=== PATIENT | male | born 1985 | race American Indian/Alaskan Native ===

== ENCOUNTER 2016-10-31 11:43 | Observation (INO) | payer MEDICAID, OTHER ==
[2016-10-31 12:58] VITALS: TEMP 98.4; BMI 43.9
[2016-10-31] MEDS ORDERED: Sodium Chloride 0.9% 1,000 ML IV STA (13:07)
--- NOTE | 2016-10-31 13:16 | ED PDOC ---
Arrival/HPI - General Chief Complaint: Abdominal Pain Time Seen by Provider: 10/31/16 12:13 Historian: Patient, Family - History of Present Illness Narrative History of Present Illness (Text): 10/31/16 12:56 Ashwini Sutton is a 31 year old male, whose past medical history includes diverticulitis and surgery on his left shoulder, who presents to the Emergency department complaining of upper abdominal pain. Patient states the pain began yesterday in the evening and reports vomiting, feeling dizziness, and nausea. Patient denies chest pain, shortness of breath, headache, fever, chills, cough, diarrhea, changes in bowel habits, dysuria, hematuria, frequency, flank pain, or other complaints. PMD: Dr. Walker Time/Duration: 24 hours Symptom Onset: Sudden Symptom Course: Unchanged Modifying Factors (Text): None Context: Home Associated Symptoms (Text): Vomiting, nausea, and dizziness Past Medical History - Provider Review Nursing Documentation Reviewed: Yes - Infectious Disease Hx of Infectious Diseases: None - Cardiac Hx Cardiac Disorders: No - Pulmonary Hx Respiratory Disorders: No - Neurological Hx Migraine: Yes - HEENT Hx HEENT Disorder: No - Renal Hx Renal Disorder: No - Endocrine/Metabolic Hx Endocrine Disorders: No - Hematological/Oncological Hx Blood Disorders: No - Integumentary Hx Dermatological Disorder: No - Musculoskeletal/Rheumatological Hx Musculoskeletal Disorders: Yes Hx Back Pain: Yes Hx Herniated Disk: Yes (LUMBAR L5 S1) Other/Comment: Chronic Left shoulder dislocation. Numerous visits in the ER. - Gastrointestinal Hx Diverticulitis: Yes - Genitourinary/Gynecological Hx Genitourinary Disorders: No - Psychiatric Hx Psychophysiologic Disorder: No Hx Substance Use: No - Surgical History Hx Orthopedic Surgery: Yes (left shoulder) - Anesthesia Hx Anesthesia: Yes - Suicidal Assessment Feels Threatened In Home Enviroment: No Family/Social History - Physician Review Nursing Documentation Reviewed: Yes Family/Social History: Unknown Family HX Smoking Status: Never Smoked Hx Alcohol Use: No Hx Substance Use: No Allergies/Home Meds Allergies/Adverse Reactions: Allergies shrimp Allergy (Intermediate, Verified 10/31/16 12:13) SHORTNESS OF BREATH hydromorphone Adverse Reaction (Intermediate, Verified 10/31/16 12:13) SHORTNESS OF BREATH seafood Adverse Reaction (Intermediate, Uncoded 10/31/16 12:13) SHORTNESS OF BREATH Review of Systems - Physician Review All systems were reviewed & negative as marked: Yes - Review of Systems Constitutional: Normal. absent: Fevers Eyes: Normal ENT: Normal Respiratory: Normal. absent: SOB Cardiovascular: Normal. absent: Chest Pain Gastrointestinal: Abdominal Pain, Nausea, Vomiting. absent: Diarrhea Genitourinary Male: absent: Dysuria Musculoskeletal: Normal Skin: Normal Neurological: Dizziness. absent: Headache Endocrine: Normal Hemo/Lymphatic: Normal Psychiatric: Normal Physical Exam Vital Signs Reviewed: Yes Vital Signs Temp Pulse Resp BP Pulse Ox 10/31/16 18:12 81 16 122/84 100 10/31/16 15:56 72 16 118/80 99 10/31/16 14:16 71 16 120/82 98 10/31/16 12:17 98.4 F 77 18 122/83 100 Temperature: Afebrile Blood Pressure: Normal Pulse: Regular Respiratory Rate: Normal Appearance: Positive for: Well-Appearing, Non-Toxic, Comfortable Pain Distress: None Mental Status: Positive for: Alert and Oriented X 3 - Systems Exam Head: Present: Atraumatic, Normocephalic Pupils: Present: PERRL Conjunctiva: Present: Normal Mouth: Present: Moist Mucous Membranes Pharnyx: Present: Normal. No: ERYTHEMA, EXUDATE Neck: Present: Normal Range of Motion Respiratory/Chest: Present: Clear to Auscultation, Good Air Exchange. No: Respiratory Distress, Accessory Muscle Use Abdomen: Present: Tenderness (tender in palpation of epigastric region), Normal Bowel Sounds. No: Distention, Peritoneal Signs Upper Extremity: Present: Normal Inspection. No: Cyanosis, Edema Lower Extremity: Present: Normal Inspection. No: Edema Neurological: Present: GCS=15, CN II-XII Intact, Speech Normal Skin: Present: Warm, Dry, Normal Color. No: Rashes Psychiatric: Present: Alert, Oriented x 3, Normal Insight, Normal Concentration Medical Decision Making ED Course and Treatment: 10/31/16 12:56 Impression: 31 year old male with abdominal pain. Differential Diagnosis included but are not limited to: gastritis vs. pancreatitis vs. colecistits vs. diverticulitis Plan: -- EKG -- Urinalysis -- Labs -- Pepcid, Sodium Chloride, and Zofran -- Reassess and disposition 10/31/16 16:32 Abdomen Ultrasound: Creator : Syd Bruno MD FINDINGS: LIVER: Measures approximately 14.6 cm cm. Demonstrates smooth contour however increased echogenicity suggesting fatty infiltration. Other infiltrative hepatocellular disease process not excluded. . No mass. No intrahepatic bile duct dilatation. GALLBLADDER: There appears to be intraluminal shadowing gallbladder calculus near the gallbladder neck region. No evidence of pericholecystic fluid collections or sonographic Love sign. COMMON BILE DUCT: Measures 4.4 --4.7 mm. No stones. No dilatation. PANCREAS: Pancreas is not visualized due to body habitus and bowel gas. RIGHT KIDNEY: Measures approximately 11.9 x 6.0 x 6.9 cmcm. Normal echogenicity. No calculus, mass, or hydronephrosis. LEFT KIDNEY: Measures 11.8 x 5.2 x 6.7cm. Normal echogenicity. No calculus, mass , or hydronephrosis. SPLEEN: Normal in size measuring approximately 11.3 cm. No splenic mass collection or calcification. AORTA: No aneurysmal dilatation. IVC: Unremarkable. OTHER FINDINGS: None. IMPRESSION: Cholelithiasis. No sonographic Love sign. Findings suggest mild fatty hepatic infiltration however other infiltrative hepatocellular disease process not excluded. Note that the pancreas is not visualized on this exam. Pancreas not visualized on this study due to body habitus and bowel gas. 10/31/16 17:[address]: Creator : Syd Bruno MD FINDINGS: LOWER THORAX: Mild bibasilar atelectasis. No evidence of basilar effusion or pneumothorax. Tiny hiatal hernia. Heart size within range of normal. No significant pericardial effusion. LIVER: Liver exhibits normal size and attenuation pattern without mass collection dictation. GALLBLADDER AND BILE DUCTS: Unremarkable. No evidence of intraluminal gallbladder calculi are pericholecystic fluid collections. PANCREAS: Pancreas appears grossly unremarkable without mass collection or calcification. SPLEEN: Spleen exhibits normal size and attenuation pattern without mass collection or calcification. ADRENALS: There are no adrenal lesions. KIDNEYS AND URETERS: Kidneys demonstrate relatively symmetric size. No evidence of nephrolithiasis or hydronephrosis. Small elliptical shaped cyst lateral posterolateral aspect upper/ midpole right kidney. BLADDER: Urinary bladder is incompletely distended which in part accounts for thick-walled appearance the possibility of cystitis not excluded. REPRODUCTIVE: Prostate gland and seminal vesicles unremarkable. APPENDIX: What is felt to represent on normal-appearing appendix best seen on axial image number [id number]. No periappendiceal inflammatory changes. BOWEL: Evaluation of the bowel is limited due to the lack of oral contrast material. Stomach is incompletely distended which may account for slight thick- walled appearance. Possibility of a gastritis not excluded. Visualized loops of small bowel exhibit normal contour and caliber. No evidence of acute mechanical small bowel obstruction. Stool and air seen throughout the colon. No evidence of definitive abnormal mural wall thickening. Few scattered colonic diverticula seen along the distal descending/ sigmoid colon. No radiographic evidence of acute diverticulitis. PERITONEUM: Unremarkable. No fluid collection. No free air. Small fat containing umbilical hernia. LYMPH NODES: Unremarkable. No enlarged lymph nodes. VASCULATURE: Unremarkable. No aortic aneurysm. BONES: Degenerative spondylosis L5-S1 level. No acute compression fractures. Vertebral bodies exhibit normal stature. OTHER FINDINGS: None. IMPRESSION: Few scattered colonic diverticula with no radiographic evidence of acute diverticulitis. No evidence of acute appendicitis. Tiny hiatal hernia. Small on cyst posterolateral upper/midpole right kidney. Urinary bladder is incompletely distended which may account for thick-walled appearance. Possibility of a cystitis not excluded. - Lab Interpretations I have reviewed the lab results: Yes - Medication Orders Current Medication Orders: Discontinued Medications Famotidine (Pepcid) 20 mg IVP STAT STA Stop: 10/31/16 13:07 Last Admin: 10/31/16 13:34 Dose: 20 mg Sodium Chloride (Sodium Chloride 0.9%) 1,000 mls @ 999 mls/hr IV .Q1H1M STA Stop: 10/31/16 14:07 Last Admin: 10/31/16 13:34 Dose: 999 mls/hr Ondansetron HCl (Zofran Inj) 4 mg IVP STAT STA Stop: 10/31/16 13:08 Last Admin: 10/31/16 13:34 Dose: 4 mg ED OBSERVATION Discharge: Yes Date of observation admission: 10/31/16 Time of observation admission: 12:56 - Observation admission statement Patient is being placed in observation because:: Abdominal pain - Goals of Observation Goals of observation are:: Purpose is to improve the symptoms and discharge. - Progress Note Progress Note: 10/31/16 12:56 Abdominal pain in the epigastric region. Patient will be observed for improvement and discharge. 10/31/16 14:56 Patient reports resolution of nausea after medication of Pepcid was administered for his stomach pain. The pain is significantly better, but notes mild pain is still present, yet manageable. Patient refuses any more pain medication. 10/31/16 16:55 Patient is currently at CAT scan. 10/31/16 18:00 Patient says pain is much better; sono showing gallstones but no signs of cholecystitis. CT with no acute findings. Patient feeling much better. OK for d/c. - Scribe Statement The provider has reviewed the documentation as recorded by the Scribe 10/31/2016 Marlee Coles All medical record entries made by the Scribe were at my direction and personally dictated by me. I have reviewed the chart and agree that the record accurately reflects my personal performance of the history, physical exam, medical decision making, and the department course for this patient. I have also personally directed, reviewed, and agree with the discharge instructions and disposition. Disposition/Present on Arrival - Present on Arrival Any Indicators Present on Arrival: No History of DVT/PE: No History of Uncontrolled Diabetes: No Urinary Catheter: No History of Decub. Ulcer: No History Surgical Site Infection Following: None - Disposition Have Diagnosis and Disposition been Completed?: Yes Diagnosis: Abdominal pain Disposition: HOME/ ROUTINE Disposition Time: 17:50 Patient Plan: Discharge Patient Problems: Current Active Problems Problem Status Onset Abdominal pain Acute Condition: GOOD
[2016-10-31 13:54] LABS: URINE BILIRUBIN NEGATIVE (NEGATIVE); URINE BLOOD NEGATIVE (NEGATIVE); URINE GLUCOSE (UA) NEGATIVE (NEGATIVE); URINE LEUKOCYTE ESTERASE NEGATIVE Leu/uL (NEGATIVE); URINE NITRATE NEGATIVE (NEGATIVE); URINE PROTEIN TRACE mg/dL (<30 mg/dL)
[2016-10-31 13:55] LABS: BASO # 0.02 K/mm3 (0.0-2.0); BASO % 0.1 % (0.0-3.0); EOS % 0.1 % (1.5-5.0); GRAN # 12.53 (1.4-6.5); GRAN % 86.5 % (50.0-68.0); HEMOGLOBIN 15.3 gm/dL (14.0-18.0); LYMPH # 1.2 (1.2-3.4); LYMPH % 8.4 % (22.0-35.0); MEAN CELL VOLUME 83.8 fL (80.0-105.0); MEAN CORPUSCULAR HEMOGLOBIN 28.1 pg (25.0-35.0); MEAN CORPUSCULAR HGB CONC 33.6 g/dl (31.0-37.0); MEAN PLATELET VOLUME 11.3 fl (7.0-11.0); MONO # 0.7 (0.1-0.6); MONO % 4.9 % (1.0-6.0); PLATELET COUNT 321 10^3/uL (120.0-450.0); RBC 5.44 10^6/uL (3.5-6.1); RED CELL DISTRIBUTION WIDTH 14.2 % (11.5-14.5); WHITE BLOOD COUNT 14.5 10^3/ul (4.5-11.0)
[2016-10-31 13:56] LABS: URINE APPEARANCE CLEAR (CLEAR); URINE COLOR YELLOW (YELLOW)
[2016-10-31 13:58] LABS: ALB/GLOB RATIO 1.1 (1.1-1.8); ALBUMIN 4.8 g/dL (3.0-4.8); ALT/SGPT 58 U/L (7-56); AMYLASE 77 U/L (35-125); AST/SGOT 32 U/L (15-59); BLOOD UREA NITROGEN 10 mg/dL (7-21); CALCIUM 9.5 mg/dL (8.4-10.5); GFR AFRICAN-AMERICAN > 60; GFR NON-AFRICAN AMERICAN > 60; LIPASE 34 U/L (23-300)
[2016-10-31 13:59] LABS: INR 0.98 (0.93-1.08); PARTIAL THROMBOPLASTIN TIME 29.6 Seconds (23.7-30.8); PROTHROMBIN TIME 10.6 Seconds (9.9-11.8)
[2016-10-31 14:08] LABS: URINE EPITHELIAL CELLS 0 - 2 /hpf (0-5); URINE RBC 0 - 2 /hpf (0-2); URINE WBC 0 - 2 /hpf (0-6)
[2016-10-31 14:18] LABS: TROPONIN I < 0.01 ng/mL
[2016-10-31 15:56] VITALS: RESP 16
--- NOTE | 2016-10-31 16:30 | US ---
HISTORY: upper abd pain COMPARISON: None. TECHNIQUE: Sonographic evaluation of the abdomen. FINDINGS: LIVER: Measures approximately 14.6 cm cm. Demonstrates smooth contour however increased echogenicity suggesting fatty infiltration. Other infiltrative hepatocellular disease process not excluded. . No mass. No intrahepatic bile duct dilatation. GALLBLADDER: There appears to be intraluminal shadowing gallbladder calculus near the gallbladder neck region. No evidence of pericholecystic fluid collections or sonographic Love sign. COMMON BILE DUCT: Measures 4.4 --4.7 mm. No stones. No dilatation. PANCREAS: Pancreas is not visualized due to body habitus and bowel gas. RIGHT KIDNEY: Measures approximately 11.9 x 6.0 x 6.9 cmcm. Normal echogenicity. No calculus, mass, or hydronephrosis. LEFT KIDNEY: Measures 11.8 x 5.2 x 6.7cm. Normal echogenicity. No calculus, mass, or hydronephrosis. SPLEEN: Normal in size measuring approximately 11.3 cm. No splenic mass collection or calcification. AORTA: No aneurysmal dilatation. IVC: Unremarkable. OTHER FINDINGS: None. IMPRESSION: Cholelithiasis. . No sonographic Love sign. Findings suggest mild fatty hepatic infiltration however other infiltrative hepatocellular disease process not excluded. Note that the pancreas is not visualized on this exam Pancreas not visualized on this study due to body habitus and bowel gas.
--- NOTE | 2016-10-31 17:20 | CT ---
PROCEDURE: CT abdomen and pelvis dated 10/31/2016 HISTORY: Abdominal pain and vomiting. COMPARISON: None. TECHNIQUE: Contiguous axial images of the abdomen and pelvis performed without oral or intravenous contrast material. Additional 2 dimensional sagittal and coronal reformats provided. . Radiation dose: Total exam DLP = 1319.91 mGy-cm. This CT exam was performed using one or more of the following dose reduction techniques: Automated exposure control, adjustment of the mA and/or kV according to patient size, and/or use of iterative reconstruction technique. FINDINGS: LOWER THORAX: Mild bibasilar atelectasis. No evidence of basilar effusion or pneumothorax. Tiny hiatal hernia. Heart size within range of normal. No significant pericardial effusion. LIVER: Liver exhibits normal size and attenuation pattern without mass collection dictation. GALLBLADDER AND BILE DUCTS: Unremarkable. No evidence of intraluminal gallbladder calculi are pericholecystic fluid collections. PANCREAS: Pancreas appears grossly unremarkable without mass collection or calcification. SPLEEN: Spleen exhibits normal size and attenuation pattern without mass collection or calcification. ADRENALS: There are no adrenal lesions. KIDNEYS AND URETERS: Kidneys demonstrate relatively symmetric size. No evidence of nephrolithiasis or hydronephrosis. Small elliptical shaped cyst lateral posterolateral aspect upper/ midpole right kidney. BLADDER: Urinary bladder is incompletely distended which in part accounts for thick-walled appearance the possibility of cystitis not excluded. REPRODUCTIVE: Prostate gland and seminal vesicles unremarkable. APPENDIX: What is felt to represent on normal-appearing appendix best seen on axial image number [id number]. No periappendiceal inflammatory changes. BOWEL: Evaluation of the bowel is limited due to the lack of oral contrast material. Stomach is incompletely distended which may account for slight thick-walled appearance. Possibility of a gastritis not excluded. Visualized loops of small bowel exhibit normal contour and caliber. No evidence of acute mechanical small bowel obstruction. Stool and air seen throughout the colon. No evidence of definitive abnormal mural wall thickening. Few scattered colonic diverticula seen along the distal descending/ sigmoid colon. No radiographic evidence of acute diverticulitis. PERITONEUM: Unremarkable. No fluid collection. No free air. Small fat containing umbilical hernia. LYMPH NODES: Unremarkable. No enlarged lymph nodes. VASCULATURE: Unremarkable. No aortic aneurysm. BONES: Degenerative spondylosis L5-S1 level. No acute compression fractures. Vertebral bodies exhibit normal stature. OTHER FINDINGS: None. IMPRESSION: Few scattered colonic diverticula with no radiographic evidence of acute diverticulitis. No evidence of acute appendicitis. Tiny hiatal hernia. Small on cyst posterolateral upper/midpole right kidney. Urinary bladder is incompletely distended which may account for thick-walled appearance. Possibility of a cystitis not excluded.
[2016-10-31 18:12] VITALS: BP 122/84; PULSE 81; O2SAT 100
--- NOTE | 2016-10-31 19:06 | CARD ---
APPROVED REPORT EKG Measurement Heart [id number] <Conclusion> Normal sinus rhythm Voltage criteria for left ventricular hypertrophy Nonspecific ST abnormality Abnormal ECG
== END 2016-10-31 18:45 | disposition home or self-care (01) ==
LOC: ED 11:43 → EROBSV 12:56
PROVIDERS: ADMIT Emergency Medicine; ATTEND Emergency Medicine
DX: R10.9 Unspecified abdominal pain (principal)
CPT/HCPCS: 36415; 74176; 76700; 80053; 81001; 82150; 82550; 83615; 83690; 84484; 85025; 85610; 85730; 93005; 96361; 96374; 96375; 99284; G0378; J2405; J7040

== ENCOUNTER 2018-06-17 06:57 | Emergency (ER) | payer MEDICAID ==
[2018-06-17 06:57] VITALS: BMI 34.7
[2018-06-17] MEDS ORDERED: Sodium Chloride 0.9% 1,000 ML IV STA (07:22)
--- NOTE | 2018-06-17 07:39 | ED PDOC ---
Arrival/HPI - General Chief Complaint: Abdominal Pain Time Seen by Provider: 06/17/18 07:06 Historian: Patient - History of Present Illness Narrative History of Present Illness (Text): 06/17/18 07:36 A 32 year old male, whose past medical history includes chronic neck and back pain and diverticulitis, presents to the emergency department with a complaint of upper abdominal pain. Patient reports that the pain began about 1.5 hours ago and he describes it as an "achy" sensation. He reports mild nausea. The patient denies fevers, chills, headache, dizziness, chest pain, shortness of breath, dyspnea on exertion, cough, vomiting, diarrhea, urinary/bowel changes, or any other complaint. PMD/ GI: Dr. Srivastava Time/Duration: 1-3 hours Symptom Onset: Sudden Symptom Course: Unchanged Activities at Onset: Rest, Light Context: Home Past Medical History - Provider Review Nursing Documentation Reviewed: Yes - Infectious Disease Hx of Infectious Diseases: None - Cardiac Hx Cardiac Disorders: No - Pulmonary Hx Respiratory Disorders: No - Neurological Hx Migraine: Yes - HEENT Hx HEENT Disorder: No - Renal Hx Renal Disorder: No - Endocrine/Metabolic Hx Endocrine Disorders: No - Hematological/Oncological Hx Blood Disorders: No - Integumentary Hx Dermatological Disorder: No - Musculoskeletal/Rheumatological Hx Musculoskeletal Disorders: Yes Hx Back Pain: Yes Hx Herniated Disk: Yes (LUMBAR L5 S1) Other/Comment: Chronic Left shoulder dislocation. Numerous visits in the ER. - Gastrointestinal Hx Diverticulitis: Yes - Genitourinary/Gynecological Hx Genitourinary Disorders: No - Psychiatric Hx Psychophysiologic Disorder: No Hx Substance Use: No - Surgical History Hx Orthopedic Surgery: Yes (left shoulder) - Anesthesia Hx Anesthesia: Yes - Suicidal Assessment Feels Threatened In Home Enviroment: No Family/Social History - Physician Review Nursing Documentation Reviewed: Yes Family/Social History: No Known Family HX Smoking Status: Never Smoked Hx Alcohol Use: No Hx Substance Use: No Allergies/Home Meds Allergies/Adverse Reactions: Allergies shrimp Allergy (Intermediate, Verified 06/17/18 07:04) SHORTNESS OF BREATH hydromorphone Adverse Reaction (Intermediate, Verified 06/17/18 07:04) SHORTNESS OF BREATH seafood Adverse Reaction (Intermediate, Uncoded 06/17/18 07:04) SHORTNESS OF BREATH Review of Systems - Physician Review All systems were reviewed & negative as marked: Yes - Review of Systems Constitutional: absent: Fevers Respiratory: absent: SOB, Cough Cardiovascular: absent: Chest Pain, FORTE Gastrointestinal: Abdominal Pain (Upper abdominal pain), Nausea. absent: Stool Changes, Diarrhea, Vomiting Genitourinary Male: absent: Urinary Output Changes Neurological: absent: Headache, Dizziness Physical Exam Vital Signs Reviewed: Yes Temperature: Afebrile Blood Pressure: Normal Pulse: Regular Respiratory Rate: Normal Appearance: Positive for: Non-Toxic Mental Status: Positive for: Alert and Oriented X 3 - Systems Exam Head: Present: Atraumatic, Normocephalic Pupils: Present: PERRL Extroacular Muscles: Present: EOMI Conjunctiva: Present: Normal Mouth: Present: Moist Mucous Membranes Neck: Present: Normal Range of Motion Respiratory/Chest: Present: Clear to Auscultation, Good Air Exchange. No: Respiratory Distress, Accessory Muscle Use Cardiovascular: Present: Regular Rate and Rhythm, Normal S1, S2. No: Murmurs Abdomen: Present: Tenderness (Tenderness to upper abdomen. Greater on right and epigastric area. ), Guarding. No: Distention, Peritoneal Signs, Rebound Back: Present: Normal Inspection Upper Extremity: Present: Normal Inspection. No: Cyanosis, Edema Lower Extremity: Present: Normal Inspection. No: Edema Neurological: Present: GCS=15, CN II-XII Intact, Speech Normal Skin: Present: Warm, Dry, Normal Color. No: Rashes Psychiatric: Present: Alert, Oriented x 3, Normal Insight, Normal Concentration Medical Decision Making ED Course and Treatment: 06/17/18 07:40 Impression: A 32 year old male presents to the emergency department with a complaint of upper abdominal pain that began about 1.5 hours ago. Differential Diagnosis included but are not limited to: cholecystitis, pancreatitis, gastritis, r/o biliary colic. Plan: -- EKG -- Abdomen Ultrasound -- Labs -- Pepcid, Toradol, Shan, and IV Fluids -- Reassess and disposition Progress Notes: EKG: Ordered, reviewed, and independently interpreted the EKG. Rate : 76 BPM Rhythm : NSR Interpretation : No ST elevations. Minimal LVH. Abdominal Ultrasound Dictator : Lencho Benitez MD Report Date : 06/17/2018 09:13:07 IMPRESSION: Gallstone at re-identified in the neck. No wall thickening or pericholecystic fluid. 06/17/18 08:59 On reevaluation, patient has no abdominal pain. His abdomen is now soft, NT, ND, BSx4. He denies any nausea or vomiting in the ED. I reviewed the previous US and CT. US 10/31/16 showed a similar result as today's prelim. CT reviewed from 10/31/16. Pending today's US report. 06/17/18 09:23 On re-evaluation, after serial abdominal exams, patient feels better, no longer in pain. Abdomen soft, non- tender. Patient is in no acute distress. I have discussed the results and plan with the patient, who expresses understanding. He has a GI physician to follow up with and I encouraged him to follow up with a Surgeon. Gave him Dr. Red to follow up on. Patient in agreement with plan to be discharged home. Patient is stable for discharge. Patient was instructed to follow up with physician or return if symptoms worsen or new concerning symptoms arise. - Lab Interpretations I have reviewed the lab results: Yes - RAD Interpretation Radiology Orders: 06/17/18 07:22 ABDOMEN COMPLETE [US] Stat - EKG Interpretation Interpreted by ED Physician: Yes Type: 12 lead EKG - Medication Orders Current Medication Orders: Sodium Chloride (Sodium Chloride 0.9%) 1,000 mls @ 1,000 mls/hr IV .Q1H STA Stop: 06/17/18 08:21 Discontinued Medications Famotidine (Pepcid) 20 mg IVP STAT STA Stop: 06/17/18 07:23 Ketorolac Tromethamine (Toradol) 30 mg IVP STAT STA Stop: 06/17/18 07:23 Ondansetron HCl (Zofran Inj) 4 mg IVP STAT STA Stop: 06/17/18 07:23 - Scribe Statement The provider has reviewed the documentation as recorded by the Scribe Marian Marr Provider Scribe Attestation: All medical record entries made by the Scribe were at my direction and personally dictated by me. I have reviewed the chart and agree that the record accurately reflects my personal performance of the history, physical exam, medical decision making, and the department course for this patient. I have also personally directed, reviewed, and agree with the discharge instructions and disposition. Disposition/Present on Arrival - Present on Arrival Any Indicators Present on Arrival: No History of DVT/PE: No History of Uncontrolled Diabetes: No Urinary Catheter: No History of Decub. Ulcer: No History Surgical Site Infection Following: None - Disposition Have Diagnosis and Disposition been Completed?: Yes Diagnosis: Biliary colic Disposition: HOME/ ROUTINE Disposition Time: 09:24 Patient Plan: Discharge Patient Problems: Current Active Problems Problem Status Onset Biliary colic Acute Condition: IMPROVED Discharge Instructions (ExitCare): Gallstones Additional Instructions: ELISA IRAHETA, thank you for letting us take care of you today. Your provider was Chuck Rodriguez DO and you were treated for Biliary Colic. The emergency medical care you received today was directed at your acute symptoms. If you were prescribed any medication, please fill it and take as directed. It may take several days for your symptoms to resolve. Return to the Emergency Department if your symptoms worsen, do not improve, or if you have any other problems. Please contact your doctor or call one of the physicians/clinics you have been referred to that are listed on the Patient Visit Information form that is included in your discharge packet. Bring any paperwork you were given at discharge with you along with any medications you are taking to your follow up visit. Our treatment cannot replace ongoing medical care by a primary care provider outside of the emergency department. Thank you for allowing the [facility] team to be part of your care today. If you had an X-Ray or CT scan: A Radiologist will review the ED reading if any change in treatment is needed we will contact you. If you had a blood, urine, or wound culture: It will take several days for the results, if any change in treatment is needed we will contact you. If you had an STI test: It will take 48 hours for the results. Please call after 1 week if you have not heard back. Prescriptions: Aluminum Hydroxide/Magnesium H [Maalox 30 ml] 30 ml PO Q8 #1 bottle Ranitidine HCl [Zantac] 150 mg PO BID PRN #30 tablet PRN Reason: Pain, Mild (1-3) Referrals: Rubén Walker MD [Family Provider] - Follow up with primary Jg Taylor MD [Medical Doctor] - Follow up with primary Trevor Red MD [Medical Doctor] - Follow up with primary Forms: [facility] ([place]), WORK NOTE
[2018-06-17 08:01] LABS: BASO # 0.03 K/mm3 (0.0-2.0); BASO % 0.2 % (0.0-3.0); EOS # 0.2 (0.0-0.7); HEMOGLOBIN 14.6 g/dL (14.0-18.0); LYMPH # 4.6 (1.2-3.4); LYMPH % 30.6 % (22.0-35.0); MEAN CELL VOLUME 83.6 fl (80.0-105.0); MEAN CORPUSCULAR HEMOGLOBIN 27.3 pg (25.0-35.0); MEAN CORPUSCULAR HGB CONC 32.7 g/dl (31.0-37.0); MEAN PLATELET VOLUME 10.5 fl (7.0-11.0); MONO # 1.2 (0.1-0.6); MONO % 7.7 % (1.0-6.0); RBC 5.35 10^6/uL (3.5-6.1); RED CELL DISTRIBUTION WIDTH 14.2 % (11.5-14.5); WHITE BLOOD COUNT 15.1 10^3/uL (4.5-11.0)
[2018-06-17 08:14] LABS: ALB/GLOB RATIO 1.1 (1.1-1.8); ALBUMIN 4.3 g/dL (3.0-4.8); ALT/SGPT 59 U/L (7-56); AST/SGOT 40 U/L (17-59); BLOOD UREA NITROGEN 16 mg/dL (7-21); CALCIUM 9.7 mg/dL (8.4-10.5); GFR NON-AFRICAN AMERICAN > 60; LIPASE 58 U/L (23-300)
[2018-06-17 08:57] VITALS: BP 116/66; PULSE 78; RESP 18; TEMP 98.5; O2SAT 98
--- NOTE | 2018-06-17 09:16 | US ---
Date of service: 06/17/2018 HISTORY: abd pain r/o cholecystitis r/o bilary colic COMPARISON: 10/31/2016 TECHNIQUE: Sonographic evaluation of the abdomen. FINDINGS: LIVER: Measures cm. Normal echogenicity of the liver parenchyma. No mass. No intrahepatic bile duct dilatation. GALLBLADDER: Gallstone at re-identified in the neck. No wall thickening or pericholecystic fluid. COMMON BILE DUCT: Measures mm. No stones. No dilatation. PANCREAS: Unremarkable as visualized. No mass. No ductal dilatation. RIGHT KIDNEY: Measures cm. Normal echogenicity. No calculus, mass, or hydronephrosis. LEFT KIDNEY: Measures cm. Normal echogenicity. No calculus, mass, or hydronephrosis. SPLEEN: Normal in size and contour. No mass. AORTA: No aneurysmal dilatation. IVC: Unremarkable. OTHER FINDINGS: None. IMPRESSION: Gallstone at re-identified in the neck. No wall thickening or pericholecystic fluid.
--- NOTE | 2018-06-19 07:53 | CARD ---
APPROVED REPORT Date of service: 06/17/2018 EKG Measurement Heart [id number] <Conclusion> Normal sinus rhythm Minimal voltage criteria for LVH, may be normal variant Borderline ECG
== END 2018-06-17 09:28 | disposition home or self-care (01) ==
LOC: ED 06:57
DX: K80.70 Calculus of gallbladder and bile duct without cholecystitis without obstruction (principal)
CPT/HCPCS: 76700; 80053; 83690; 83735; 85025; 93005; 96361; 96374; 96375; 99284; J1885; J2405; J7030